=== PATIENT | female | born 1985 | race African-American/Black ===

== ENCOUNTER 2019-08-20 17:29 | Inpatient (IN) | payer MEDICAID ==
[~2019-08-20] VITALS: Ht 147.3 cm; Wt 103.9 kg
[2019-08-20 17:30] VITALS: BP_SYST 146
[2019-08-20] MEDS ORDERED: NACL 0.9% 1,000 ML IV ONE (17:50)
[2019-08-20 18:31] LABS: BASOPHILS % (AUTO) 0.2 % (0.0-2.0); EOSINOPHILS % (AUTO) 0.2 % (0.0-4.0); HEMATOCRIT 38.7 % (36-48); HEMOGLOBIN 12.6 g/dL (12.0-16.0); LYMPHOCYTES # (AUTO) 0.9 K/uL (1.0-5.5); LYMPHOCYTES % (AUTO) 10.1 % (20.5-51.5); MEAN CORPUSCULAR HEMOGLOBIN 29 pg (27-31); MEAN CORPUSCULAR HGB CONC 33 % (32-36); MEAN CORPUSCULAR VOLUME 88 fL (79.0-98.0); MONOCYTES # (AUTO) 0.5 K/uL (0.0-1.0); NEUTROPHILS # (AUTO) 7.9 K/uL (1.8-7.7); NEUTROPHILS % (AUTO) 84.5 % (40.0-70.0); RED BLOOD CELL COUNT(AUTO) 4.41 MIL/uL (4.2-6.2); RED CELL DISTRIBUTION WIDTH 17.1 % (9.0-15.0); WHITE BLOOD COUNT (AUTO) 9.3 K/uL (4.8-10.8)
[2019-08-20] MEDS ORDERED: LORazepam 2 MG/ML VIAL IVP ONE ×2 (18:45→23:30)
[2019-08-20 18:46] LABS: ANION GAP 11 (5-15); CALCIUM 8.6 mg/dL (8.4-11.0); CHLORIDE 100 mmol/L (98-107); GLUCOSE 264 mg/dL (70-99); POTASSIUM 4.2 mmol/L (3.5-5.1); SODIUM SERUM 132 mmol/L (136-145); UREA NITROGEN, BLOOD 9 mg/dL (8-21)
[2019-08-20 18:56] LABS: GFR AFRICAN AMERICAN 92 mL/min (>90)
[2019-08-20 18:59] LABS: ACETAMINOPHEN < 1 ug/mL (1-30); ALANINE AMINOTRANSFERASE 30 U/L (12-78); ALBUMIN 3.1 g/dL (3.4-4.8); ASPARTATE AMINOTRANSFERASE 43 U/L (10-37); TOTAL BILIRUBIN 0.7 mg/dL (0.0-1.0)
[2019-08-20 19:00] LABS: ALCOHOL, BLOOD < 3 mg/dL (<10)
[2019-08-20] MEDS ORDERED: INSULIN REGULAR, HUMAN 10 UNITS/0.1 ML INJ IVP ONE (19:00)
[2019-08-20 19:11] LABS: PLATELET COUNT (AUTO) 90 K/uL (130-430)
[2019-08-20 19:20] LABS: ACETONE, SERUM NEGATIVE (NEGATIVE)
[2019-08-20] MEDS ORDERED: LORA-259 PO (19:36)
[2019-08-20] MEDS ORDERED: INSU100V SUBQ (19:37)
[2019-08-20] MEDS ORDERED: DIVA-74 PO (19:37)
[2019-08-20] MEDS ORDERED: METF-379 PO (19:37)
[2019-08-20] MEDS ORDERED: [UNRECOGNIZED DRUG - CODE] PO (19:37)
[2019-08-20] MEDS ORDERED: LISI10TA PO (19:37)
[2019-08-20] MEDS ORDERED: BIMA2.5D5 EACH EYE (19:37)
[2019-08-20] MEDS ORDERED: INSU100V9 SUBQ (19:37)
[2019-08-20] MEDS ORDERED: ASPI-1153 PO (19:37)
[2019-08-20] MEDS ORDERED: GABA-529 PO (19:37)
[2019-08-20] MEDS ORDERED: FLUT1BLS11 INH (19:37)
[2019-08-20] MEDS ORDERED: LIP10 PO (19:37)
[2019-08-20] MEDS ORDERED: MONT10TA22 PO (19:37)
[2019-08-20] MEDS ORDERED: MULT1CAP34 PO (19:37)
[2019-08-20] MEDS ORDERED: OMEP40CA PO (19:37)
[2019-08-20] MEDS ORDERED: TRAZ-219 PO (19:38)
[2019-08-20] MEDS ORDERED: HYDC1% TP (19:38)
[2019-08-20] MEDS ORDERED: ALBU90AE INH (19:38)
[2019-08-20] MEDS ORDERED: DEXT-81 PO (19:38)
[2019-08-20] MEDS ORDERED: SENN-104 PO (19:38)
[2019-08-20] MEDS ORDERED: SUNSCREEN TP (19:38)
[2019-08-20] MEDS ORDERED: LORA10CA PO (19:38)
[2019-08-20] MEDS ORDERED: CALC500T51 PO (19:38)
[2019-08-20] MEDS ORDERED: IBUP-1503 PO (19:38)
[2019-08-20] MEDS ORDERED: CYCL-10 PO (19:38)
[2019-08-20] MEDS ORDERED: [UNRECOGNIZED DRUG - CODE] PO (19:38)
[2019-08-20] MEDS ORDERED: ROBDM PO (19:38)
[2019-08-20] MEDS ORDERED: IPRATROPIUM/ALBUTEROL SULFATE 3 ML AMPUL.NEB (DUONEB) INH ONE (20:00)
[2019-08-20] MEDS ORDERED: AZITHROMYCIN 500 MG in NS 250 ML IV ONE (20:00)
[2019-08-20] MEDS ORDERED: AZITHROMYCIN 500 MG/VIAL (ZITHROMAX) IV ONE ×2 (20:21→20:27)
[2019-08-20] MEDS ORDERED: cefTRIAXone 2 GM VIAL ONE (20:25)
[2019-08-20 20:37] LABS: FREE T4 (FREE THYROXINE) 0.7 ng/dl (0.8-1.5); THYROID STIMULATING HORMONE 0.68 uIu/mL (0.36-3.74)
[2019-08-20 20:44] LABS: BARBITURATE, URINE NEGATIVE (NEG <=200); BENZODIAZEPINE, URINE POSITIVE (NEG <=150); CANNABINOID, URINE NEGATIVE (NEG <=50); COCAINE, URINE NEGATIVE (NEG <=150); METHAMPHETAMINES SCREEN,URINE NEGATIVE (NEG <=500); OPIATE, URINE NEGATIVE (NEG <=100); PHENCYCLIDINE SCREEN,URINE NEGATIVE (NEG <=25); UR TRICYCLIC ANTIDEPRESSANTS POSITIVE (NEG <=300); URINE AMPHETAMINE NEGATIVE (NEG <=500); URINE METHADONE NEGATIVE (NEG <=200); URINE OXYCODONE SCREEN NEGATIVE (NEG <=100); URINE PROPOXYPHENE SCREEN NEGATIVE (NEG <=300)
[2019-08-20 23:13] LABS: BILIRUBIN,URINE 1+ (NEGATIVE); BLOOD, URINE NEGATIVE (NEGATIVE); CLARITY/URINE CLEAR (CLEAR); COLOR,URINE YELLOW (YELLOW); GLUCOSE,URINE 1+ (NEGATIVE); KETONES,URINE NEGATIVE (NEGATIVE); LEUKOCYTE ESTERASE ,URINE NEGATIVE (NEGATIVE); NITRITE, URINE NEGATIVE (NEGATIVE); PH,URINE 5.5 (5.0-8.0); PROTEIN URINE NEGATIVE (NEGATIVE); UROBILINOGEN,URINE 0.2 (0.2-1.0)
[2019-08-21] VITALS (7 sets, daily range): BP systolic 115–158
[2019-08-21 00:19] LABS: CKMB RELATIVE INDEX 0.8 (0.0-2.9); CREATINE KINASE MB 9.6 ng/mL (0-3.6)
[2019-08-21] MEDS ORDERED: HALOPERIDOL LACTATE 5 MG/ML VIAL IM ONE (02:00)
[2019-08-21] MEDS ORDERED: HALOPERIDOL LACTATE 5 MG/ML VIAL ONE (02:07)
[2019-08-21] MEDS ORDERED: LORazepam 2 MG/ML VIAL ONE (04:08)
[2019-08-21] MEDS: LORazepam 2 MG/ML VIAL IVP PRN ×4 (09:34→21:13)
[2019-08-21] MEDS ORDERED: SUNSCREEN TP SCH (11:30)
[2019-08-21] MEDS ORDERED: GLUCOSE PO SCH (11:30)
[2019-08-21] MEDS ORDERED: ALBUTEROL SULFATE 0.083% 2.5 MG/3 ML VIAL.NEB INH PRN (11:30)
[2019-08-21] MEDS ORDERED: INSULIN LISPRO SLIDING SCALE 100 UNITS/ML VIAL (humaLOG) SQ SCH (11:30)
[2019-08-21] MEDS ORDERED: ONDANSETRON HCL 4 MG/2 ML VIAL IVP PRN (11:45)
[2019-08-21] MEDS ORDERED: HYDROcodone/ACETAMIN 10-325 MG TAB PO PRN (11:45)
[2019-08-21] MEDS ORDERED: HYDROcodone/ACETAMIN 5-325 MG TAB (NORCO/ VICODIN) PO PRN (11:45)
[2019-08-21] MEDS ORDERED: ACETAMINOPHEN 325 MG TABLET PO PRN (11:45)
[2019-08-21] MEDS ORDERED: MORPHINE 2 MG/ML INJ. SYRINGE IVP PRN (11:45)
[2019-08-21] MEDS ORDERED: LISINOPRIL 10 MG TABLET (PRINIVIL) PO ONE (12:00)
[2019-08-21] MEDS ORDERED: cefTRIAXone 1 GM IVPB PREMIX 50 ML IV SCH (12:00)
[2019-08-21] MEDS: D5/0.45 NS 1,000 ML IV SCH ×2 (12:37→21:40)
[2019-08-21] MEDS: AZITHROMYCIN 500 MG in NS 250 ML IV SCH (12:37)
[2019-08-21] MEDS ORDERED: GLUCOSE 15 GM GEL (in 37.5 GM TUBE) PO PRN (12:45)
[2019-08-21] MEDS ORDERED: ACETAMINOPHEN 650 MG SUPP.RECT RC PRN (14:00)
[2019-08-21] MEDS ORDERED: ACETAMINOPHEN 650 MG SUPP.RECT RC ONE (14:10)
[2019-08-21] MEDS: LORazepam 1 MG TABLET PO SCH ×2 (15:00→21:00)
[2019-08-21] MEDS: GABAPENTIN 100 MG CAPSULE PO SCH ×2 (15:00→21:00)
[2019-08-21] MEDS: guaiFENesin/DEXTROMETHORPHAN 10 ML UDC PO SCH ×3 (15:14→19:30)
[2019-08-21] MEDS: IBUPROFEN 400 MG TABLET PO SCH ×3 (15:14→23:30)
[2019-08-21] MEDS: ACETAMINOPHEN 500 MG TABLET PO SCH ×3 (15:14→23:30)
[2019-08-21] MEDS ORDERED: LORazepam 2 MG/ML VIAL IVP PRN (15:15)
[2019-08-21] MEDS ORDERED: DILTIAZEM HCL 25 MG/5 ML VIAL IVP ONE (15:30)
[2019-08-21] MEDS: ACYCLOVIR IV 500 MG in D5W 100 ML IV SCH ×2 (15:50→21:23)
[2019-08-21] MEDS ORDERED: DEXTROSE 50% JECT 50 ML DISP.SYRIN IVP PRN (17:45)
[2019-08-21] MEDS: traZODone HCL 50 MG TABLET (DESYREL) PO SCH (17:51)
[2019-08-21] MEDS ORDERED: DEXTROSE 50% JECT 50 ML DISP.SYRIN ONE (17:52)
[2019-08-21] MEDS: ATORVASTATIN 10 MG TABLET PO SCH (17:53)
[2019-08-21] MEDS: CYCLOBENZAPRINE HCL 10 MG TABLET (FLEXERIL) PO SCH (21:00)
[2019-08-21] MEDS: DIVALPROEX SODIUM 500 MG TABLET( DEPAKOTE) PO SCH (21:00)
[2019-08-21] MEDS: THORAZINE (chlorproMAZINE) 25 MG TAB PO SCH (21:00)
[2019-08-21] MEDS: SENNOSIDES/DOCUSATE SODIUM 1 TAB TABLET(SENOKOT-S) PO SCH (21:00)
[2019-08-21] MEDS: cefTRIAXone 2 GM in D5W 50 ML IV SCH (21:25)
[2019-08-22] VITALS (9 sets, daily range): BP systolic 108–153
[2019-08-22] MEDS ORDERED: DILTIAZEM HCL 25 MG/5 ML VIAL IVP SCH
[2019-08-22] MEDS: LORazepam 2 MG/ML VIAL IVP PRN ×3 (00:10→09:26)
[2019-08-22] MEDS: guaiFENesin/DEXTROMETHORPHAN 10 ML UDC PO SCH ×7 (00:27→22:48)
[2019-08-22] MEDS: DILTIAZEM HCL 125 MG in D5W 100 ML IV SCH ×2 (03:54→20:47)
[2019-08-22] MEDS ORDERED: DILTIAZEM HCL 25 MG/5 ML VIAL IVP ONE (04:00)
[2019-08-22] MEDS: ACETAMINOPHEN 500 MG TABLET PO SCH ×4 (04:23→22:49)
[2019-08-22] MEDS: IBUPROFEN 400 MG TABLET PO SCH ×4 (04:23→22:48)
[2019-08-22] MEDS: ACYCLOVIR IV 500 MG in D5W 100 ML IV SCH ×3 (04:39→22:35)
[2019-08-22 07:14] LABS: BASOPHILS % (AUTO) 0.3 % (0.0-2.0); EOSINOPHILS # (AUTO) 0.1 K/uL (0.0-0.4); EOSINOPHILS % (AUTO) 0.8 % (0.0-4.0); HEMATOCRIT 35.5 % (36-48); HEMOGLOBIN 11.8 g/dL (12.0-16.0); LYMPHOCYTES # (AUTO) 1.2 K/uL (1.0-5.5); LYMPHOCYTES % (AUTO) 12.9 % (20.5-51.5); MEAN CORPUSCULAR HEMOGLOBIN 29 pg (27-31); MEAN CORPUSCULAR HGB CONC 33 % (32-36); MEAN CORPUSCULAR VOLUME 88 fL (79.0-98.0); MONOCYTES # (AUTO) 0.8 K/uL (0.0-1.0); MONOCYTES % (AUTO) 8.4 % (1.7-9.3); NEUTROPHILS # (AUTO) 7.3 K/uL (1.8-7.7); NEUTROPHILS % (AUTO) 77.6 % (40.0-70.0); PLATELET COUNT (AUTO) 84 K/uL (130-430); RED BLOOD CELL COUNT(AUTO) 4.05 MIL/uL (4.2-6.2); RED CELL DISTRIBUTION WIDTH 16.7 % (9.0-15.0); WHITE BLOOD COUNT (AUTO) 9.4 K/uL (4.8-10.8)
[2019-08-22 07:38] LABS: CALCIUM 8.4 mg/dL (8.4-11.0); CREATININE 1.04 mg/dL (0.55-1.30); POTASSIUM 3.3 mmol/L (3.5-5.1)
[2019-08-22] MEDS: MONTELUKAST 10 MG TABLET PO SCH (09:00)
[2019-08-22] MEDS: MULTIVITAMINS TAB 1 TABLET PO SCH (09:00)
[2019-08-22] MEDS: ASPIRIN 81 MG TABLET(ECOTRIN) PO SCH (09:00)
[2019-08-22] MEDS: THORAZINE (chlorproMAZINE) 25 MG TAB PO SCH ×2 (09:00→20:22)
[2019-08-22] MEDS: metFORMIN HCL 500 MG TABLET PO SCH (09:00)
[2019-08-22] MEDS: LORATADINE 10 MG TABLET PO SCH (09:00)
[2019-08-22] MEDS: PANTOPRAZOLE SODIUM 40 MG TAB PO SCH (09:00)
[2019-08-22] MEDS: DIVALPROEX SODIUM 500 MG TABLET( DEPAKOTE) PO SCH ×2 (09:00→20:21)
[2019-08-22] MEDS: LORazepam 1 MG TABLET PO SCH ×3 (09:00→20:21)
[2019-08-22] MEDS ORDERED: INSULIN GLARGINE 100 UNITS/ML 10 ML VIAL SQ SCH (09:00)
[2019-08-22] MEDS: LISINOPRIL 10 MG TABLET (PRINIVIL) PO SCH (09:00)
[2019-08-22] MEDS: SENNOSIDES/DOCUSATE SODIUM 1 TAB TABLET(SENOKOT-S) PO SCH ×2 (09:00→20:22)
[2019-08-22] MEDS: CALCIUM 500 MG/TAB PO SCH (09:00)
[2019-08-22] MEDS: GABAPENTIN 100 MG CAPSULE PO SCH ×3 (09:00→20:22)
[2019-08-22] MEDS ORDERED: POTASSIUM CHLORIDE 40 MEQ, LIDOCAINE JECT 2% PF 100 MG 50 MG in NS 250 ML IV ONE (11:30)
[2019-08-22] MEDS: cefTRIAXone 2 GM in D5W 50 ML IV SCH ×2 (11:48→20:47)
[2019-08-22] MEDS: D5/0.45 NS 1,000 ML IV SCH ×2 (11:50→17:33)
[2019-08-22] MEDS: MORPHINE 4 MG/ML INJ. SYRINGE IVP PRN (12:40)
[2019-08-22] MEDS: AZITHROMYCIN 500 MG in NS 250 ML IV SCH (13:51)
[2019-08-22] MEDS: HALOPERIDOL LACTATE 5 MG/ML VIAL IVP PRN (15:12)
[2019-08-22] MEDS: traZODone HCL 50 MG TABLET (DESYREL) PO SCH (17:33)
[2019-08-22] MEDS: ATORVASTATIN 10 MG TABLET PO SCH (17:33)
[2019-08-22] MEDS: CYCLOBENZAPRINE HCL 10 MG TABLET (FLEXERIL) PO SCH (20:21)
[2019-08-23 02:02] VITALS: BP_SYST 135
[2019-08-23] MEDS: LORazepam 2 MG/ML VIAL IVP PRN ×3 (02:07→16:56)
[2019-08-23] MEDS: guaiFENesin/DEXTROMETHORPHAN 10 ML UDC PO SCH ×6 (03:30→23:30)
[2019-08-23 04:37] VITALS: BP_SYST 141
[2019-08-23] MEDS: IBUPROFEN 400 MG TABLET PO SCH ×4 (04:38→23:30)
[2019-08-23] MEDS: ACETAMINOPHEN 500 MG TABLET PO SCH ×4 (04:38→23:30)
[2019-08-23] MEDS: D5/0.45 NS 1,000 ML IV SCH ×3 (06:18→23:41)
[2019-08-23] MEDS: ACYCLOVIR IV 500 MG in D5W 100 ML IV SCH ×3 (06:18→21:26)
[2019-08-23 07:45] LABS: BASOPHILS % (AUTO) 0.5 % (0.0-2.0); EOSINOPHILS # (AUTO) 0.2 K/uL (0.0-0.4); EOSINOPHILS % (AUTO) 2.4 % (0.0-4.0); HEMATOCRIT 35.4 % (36-48); HEMOGLOBIN 11.8 g/dL (12.0-16.0); LYMPHOCYTES # (AUTO) 0.9 K/uL (1.0-5.5); LYMPHOCYTES % (AUTO) 9.8 % (20.5-51.5); MEAN CORPUSCULAR HEMOGLOBIN 29 pg (27-31); MEAN CORPUSCULAR HGB CONC 33 % (32-36); MEAN CORPUSCULAR VOLUME 88 fL (79.0-98.0); MONOCYTES # (AUTO) 0.7 K/uL (0.0-1.0); MONOCYTES % (AUTO) 7.4 % (1.7-9.3); NEUTROPHILS # (AUTO) 7.1 K/uL (1.8-7.7); NEUTROPHILS % (AUTO) 79.9 % (40.0-70.0); PLATELET COUNT (AUTO) 84 K/uL (130-430); RED BLOOD CELL COUNT(AUTO) 4.03 MIL/uL (4.2-6.2); RED CELL DISTRIBUTION WIDTH 16.5 % (9.0-15.0); WHITE BLOOD COUNT (AUTO) 8.9 K/uL (4.8-10.8)
[2019-08-23 07:56] VITALS: BP_SYST 158
[2019-08-23 07:58] LABS: INR 1.2 (0.8-1.2); PROTHROMBIN TIME 11.9 SECS (9.5-12.5)
[2019-08-23 08:13] LABS: ALBUMIN 2.5 g/dL (3.4-4.8); C-REACTIVE PROTEIN QUANT 5.4 mg/dL (0-0.5); CALCIUM 8.3 mg/dL (8.4-11.0); CREATININE 0.79 mg/dL (0.55-1.30); POTASSIUM 3.3 mmol/L (3.5-5.1); TOTAL BILIRUBIN 0.5 mg/dL (0.0-1.0)
[2019-08-23] MEDS: ASPIRIN 81 MG TABLET(ECOTRIN) PO SCH (08:20)
[2019-08-23] MEDS: DIVALPROEX SODIUM 500 MG TABLET( DEPAKOTE) PO SCH ×2 (08:20→21:00)
[2019-08-23] MEDS: LORazepam 1 MG TABLET PO SCH ×3 (08:20→21:00)
[2019-08-23] MEDS: LORATADINE 10 MG TABLET PO SCH (08:20)
[2019-08-23] MEDS: MULTIVITAMINS TAB 1 TABLET PO SCH (08:21)
[2019-08-23] MEDS: LISINOPRIL 10 MG TABLET (PRINIVIL) PO SCH (08:21)
[2019-08-23] MEDS: GABAPENTIN 100 MG CAPSULE PO SCH ×3 (08:21→21:00)
[2019-08-23] MEDS: CALCIUM 500 MG/TAB PO SCH (08:21)
[2019-08-23] MEDS: metFORMIN HCL 500 MG TABLET PO SCH (08:21)
[2019-08-23] MEDS: PANTOPRAZOLE SODIUM 40 MG TAB PO SCH (08:22)
[2019-08-23] MEDS: THORAZINE (chlorproMAZINE) 25 MG TAB PO SCH ×2 (08:22→21:00)
[2019-08-23] MEDS: SENNOSIDES/DOCUSATE SODIUM 1 TAB TABLET(SENOKOT-S) PO SCH ×2 (08:22→21:00)
[2019-08-23] MEDS: MONTELUKAST 10 MG TABLET PO SCH (08:22)
[2019-08-23] MEDS: HALOPERIDOL LACTATE 5 MG/ML VIAL IVP SCH ×3 (08:34→21:12)
[2019-08-23] MEDS: cefTRIAXone 2 GM in D5W 50 ML IV SCH ×2 (08:34→21:12)
[2019-08-23 09:27] LABS: ERYTHROCYTE SEDIMENTATION RATE 17 MM/HR (0-20)
[2019-08-23] MEDS ORDERED: POTASSIUM CHLORIDE 40 MEQ, LIDOCAINE JECT 2% PF 100 MG 50 MG in NS 250 ML IV ONE (09:45)
[2019-08-23] MEDS ORDERED: CALCIUM GLUCONATE 1 GM in NS 100 ML IV ONE (09:45)
[2019-08-23] MEDS: traZODone HCL 50 MG TABLET (DESYREL) PO SCH (10:30)
[2019-08-23] MEDS: ATORVASTATIN 10 MG TABLET PO SCH (10:31)
[2019-08-23] MEDS: AZITHROMYCIN 500 MG in NS 250 ML IV SCH (11:30)
[2019-08-23] MEDS: INSULIN REGULAR, HUMAN 100 UNITS/ML, 10 ML VIAL (humuLIN R) SUBCUT PRN ×2 (11:47→23:41)
[2019-08-23 12:00] VITALS: BP_SYST 129
[2019-08-23 16:23] VITALS: BP_SYST 134
[2019-08-23] MEDS: CYCLOBENZAPRINE HCL 10 MG TABLET (FLEXERIL) PO SCH (21:00)
[2019-08-23 21:09] VITALS: BP_SYST 142
[2019-08-23] MEDS: DILTIAZEM HCL 125 MG in D5W 100 ML IV SCH (22:16)
[2019-08-24 01:22] VITALS: BP_SYST 136
[2019-08-24] MEDS: LORazepam 2 MG/ML VIAL IVP PRN (01:47)
[2019-08-24] MEDS: guaiFENesin/DEXTROMETHORPHAN 10 ML UDC PO SCH ×5 (03:30→20:32)
[2019-08-24] MEDS: HALOPERIDOL LACTATE 5 MG/ML VIAL IVP PRN (04:26)
[2019-08-24] MEDS: IBUPROFEN 400 MG TABLET PO SCH ×3 (04:59→17:33)
[2019-08-24] MEDS: ACETAMINOPHEN 500 MG TABLET PO SCH ×3 (05:00→17:33)
[2019-08-24] MEDS: ACYCLOVIR IV 500 MG in D5W 100 ML IV SCH ×3 (05:30→21:09)
[2019-08-24] MEDS: INSULIN REGULAR, HUMAN 100 UNITS/ML, 10 ML VIAL (humuLIN R) SUBCUT PRN ×3 (05:30→17:26)
[2019-08-24 06:15] LABS: BASOPHILS % (AUTO) 0.5 % (0.0-2.0); EOSINOPHILS # (AUTO) 0.2 K/uL (0.0-0.4); EOSINOPHILS % (AUTO) 1.8 % (0.0-4.0); HEMATOCRIT 37.1 % (36-48); HEMOGLOBIN 12.3 g/dL (12.0-16.0); LYMPHOCYTES # (AUTO) 1.6 K/uL (1.0-5.5); LYMPHOCYTES % (AUTO) 17.9 % (20.5-51.5); MEAN CORPUSCULAR HEMOGLOBIN 29 pg (27-31); MEAN CORPUSCULAR HGB CONC 33 % (32-36); MEAN CORPUSCULAR VOLUME 88 fL (79.0-98.0); MONOCYTES # (AUTO) 0.9 K/uL (0.0-1.0); MONOCYTES % (AUTO) 9.4 % (1.7-9.3); NEUTROPHILS # (AUTO) 6.4 K/uL (1.8-7.7); NEUTROPHILS % (AUTO) 70.4 % (40.0-70.0); RED BLOOD CELL COUNT(AUTO) 4.23 MIL/uL (4.2-6.2); WHITE BLOOD COUNT (AUTO) 9.1 K/uL (4.8-10.8)
[2019-08-24 06:19] LABS: C-REACTIVE PROTEIN QUANT 9.1 mg/dL (0-0.5); CALCIUM 8.8 mg/dL (8.4-11.0); CREATININE 0.86 mg/dL (0.55-1.30); POTASSIUM 3.9 mmol/L (3.5-5.1)
[2019-08-24 07:15] LABS: PLATELET COUNT (AUTO) 96 K/uL (130-430)
[2019-08-24 07:46] VITALS: BP_SYST 145
[2019-08-24 07:51] LABS: ERYTHROCYTE SEDIMENTATION RATE 27 MM/HR (0-20)
[2019-08-24] MEDS: HALOPERIDOL LACTATE 5 MG/ML VIAL IVP SCH ×3 (08:07→20:32)
[2019-08-24] MEDS: metFORMIN HCL 500 MG TABLET PO SCH (09:00)
[2019-08-24] MEDS: SENNOSIDES/DOCUSATE SODIUM 1 TAB TABLET(SENOKOT-S) PO SCH ×2 (09:00→20:33)
[2019-08-24] MEDS: LISINOPRIL 10 MG TABLET (PRINIVIL) PO SCH (09:00)
[2019-08-24] MEDS: PANTOPRAZOLE SODIUM 40 MG TAB PO SCH (09:00)
[2019-08-24] MEDS: LORATADINE 10 MG TABLET PO SCH (09:00)
[2019-08-24] MEDS: CALCIUM 500 MG/TAB PO SCH (09:00)
[2019-08-24] MEDS: GABAPENTIN 100 MG CAPSULE PO SCH ×3 (09:00→20:33)
[2019-08-24] MEDS: LORazepam 1 MG TABLET PO SCH ×3 (09:00→20:33)
[2019-08-24] MEDS: MONTELUKAST 10 MG TABLET PO SCH (09:00)
[2019-08-24] MEDS: THORAZINE (chlorproMAZINE) 25 MG TAB PO SCH ×2 (09:00→20:41)
[2019-08-24] MEDS: ASPIRIN 81 MG TABLET(ECOTRIN) PO SCH (09:00)
[2019-08-24] MEDS: MULTIVITAMINS TAB 1 TABLET PO SCH (09:00)
[2019-08-24] MEDS: D5/0.45 NS 1,000 ML IV SCH ×2 (10:00→20:28)
[2019-08-24] MEDS: DIVALPROEX SODIUM 500 MG TABLET( DEPAKOTE) PO SCH ×2 (10:29→20:33)
[2019-08-24] MEDS: cefTRIAXone 2 GM in D5W 50 ML IV SCH ×2 (10:40→20:34)
[2019-08-24 12:00] VITALS: BP_SYST 147
[2019-08-24 12:03] VITALS: BP_SYST 145
[2019-08-24] MEDS: AZITHROMYCIN 500 MG in NS 250 ML IV SCH (12:27)
[2019-08-24] MEDS: MORPHINE 4 MG/ML INJ. SYRINGE IVP PRN (13:21)
[2019-08-24 16:04] VITALS: BP_SYST 127
[2019-08-24] MEDS: traZODone HCL 50 MG TABLET (DESYREL) PO SCH (17:33)
[2019-08-24] MEDS: ATORVASTATIN 10 MG TABLET PO SCH (17:33)
[2019-08-24 20:31] VITALS: BP_SYST 138
[2019-08-24] MEDS: CYCLOBENZAPRINE HCL 10 MG TABLET (FLEXERIL) PO SCH (20:33)
[2019-08-25] MEDS: ACETAMINOPHEN 500 MG TABLET PO SCH ×4 (00:25→17:27)
[2019-08-25] MEDS: IBUPROFEN 400 MG TABLET PO SCH ×4 (00:25→17:25)
[2019-08-25] MEDS: guaiFENesin/DEXTROMETHORPHAN 10 ML UDC PO SCH ×6 (00:25→19:30)
[2019-08-25] MEDS: INSULIN REGULAR, HUMAN 100 UNITS/ML, 10 ML VIAL (humuLIN R) SUBCUT PRN ×4 (00:31→17:31)
[2019-08-25 01:26] VITALS: BP_SYST 141
[2019-08-25 03:39] VITALS: BP_SYST 132
[2019-08-25] MEDS: DILTIAZEM HCL 125 MG in D5W 100 ML IV SCH (03:41)
[2019-08-25] MEDS: ACYCLOVIR IV 500 MG in D5W 100 ML IV SCH ×3 (05:18→23:09)
[2019-08-25] MEDS: D5/0.45 NS 1,000 ML IV SCH ×2 (05:19→15:30)
[2019-08-25 06:50] LABS: BASOPHILS # (AUTO) 0.1 K/uL (0.0-0.2); BASOPHILS % (AUTO) 0.8 % (0.0-2.0); EOSINOPHILS # (AUTO) 0.4 K/uL (0.0-0.4); EOSINOPHILS % (AUTO) 5.6 % (0.0-4.0); HEMOGLOBIN 11.6 g/dL (12.0-16.0); LYMPHOCYTES # (AUTO) 1.2 K/uL (1.0-5.5); MEAN CORPUSCULAR HEMOGLOBIN 29 pg (27-31); MEAN CORPUSCULAR HGB CONC 33 % (32-36); MEAN CORPUSCULAR VOLUME 88 fL (79.0-98.0); MONOCYTES # (AUTO) 0.6 K/uL (0.0-1.0); MONOCYTES % (AUTO) 8.7 % (1.7-9.3); NEUTROPHILS # (AUTO) 4.7 K/uL (1.8-7.7); NEUTROPHILS % (AUTO) 67.9 % (40.0-70.0); PLATELET COUNT (AUTO) 87 K/uL (130-430); RED BLOOD CELL COUNT(AUTO) 3.99 MIL/uL (4.2-6.2); RED CELL DISTRIBUTION WIDTH 16.6 % (9.0-15.0); WHITE BLOOD COUNT (AUTO) 6.9 K/uL (4.8-10.8)
[2019-08-25 07:08] LABS: C-REACTIVE PROTEIN QUANT 7.2 mg/dL (0-0.5); CALCIUM 8.2 mg/dL (8.4-11.0); CREATININE 0.79 mg/dL (0.55-1.30); POTASSIUM 3.3 mmol/L (3.5-5.1)
[2019-08-25 08:00] VITALS: BP_SYST 140
[2019-08-25 09:07] LABS: ERYTHROCYTE SEDIMENTATION RATE 23 MM/HR (0-20)
[2019-08-25] MEDS: cefTRIAXone 2 GM in D5W 50 ML IV SCH (10:05)
[2019-08-25] MEDS: GABAPENTIN 100 MG CAPSULE PO SCH ×3 (10:05→22:25)
[2019-08-25] MEDS: metFORMIN HCL 500 MG TABLET PO SCH (10:06)
[2019-08-25] MEDS: LORazepam 1 MG TABLET PO SCH ×3 (10:06→22:26)
[2019-08-25] MEDS: DIVALPROEX SODIUM 500 MG TABLET( DEPAKOTE) PO SCH ×2 (10:07→22:25)
[2019-08-25] MEDS: LORATADINE 10 MG TABLET PO SCH (10:07)
[2019-08-25] MEDS: CALCIUM 500 MG/TAB PO SCH (10:07)
[2019-08-25] MEDS: ASPIRIN 81 MG TABLET(ECOTRIN) PO SCH (10:08)
[2019-08-25] MEDS: MULTIVITAMINS TAB 1 TABLET PO SCH (10:08)
[2019-08-25] MEDS: MONTELUKAST 10 MG TABLET PO SCH (10:08)
[2019-08-25] MEDS: THORAZINE (chlorproMAZINE) 25 MG TAB PO SCH ×2 (10:09→22:41)
[2019-08-25] MEDS: SENNOSIDES/DOCUSATE SODIUM 1 TAB TABLET(SENOKOT-S) PO SCH ×2 (10:09→21:00)
[2019-08-25] MEDS: LISINOPRIL 10 MG TABLET (PRINIVIL) PO SCH (10:10)
[2019-08-25] MEDS: HALOPERIDOL LACTATE 5 MG/ML VIAL IVP SCH ×2 (10:11→15:00)
[2019-08-25] MEDS: PANTOPRAZOLE SODIUM 40 MG TAB PO SCH (10:11)
[2019-08-25] MEDS: AZITHROMYCIN 500 MG in NS 250 ML IV SCH (12:13)
[2019-08-25 12:50] VITALS: BP_SYST 150
[2019-08-25 16:12] VITALS: BP_SYST 140
[2019-08-25] MEDS: ATORVASTATIN 10 MG TABLET PO SCH (17:25)
[2019-08-25] MEDS: traZODone HCL 50 MG TABLET (DESYREL) PO SCH (17:27)
[2019-08-25] MEDS ORDERED: HALOPERIDOL LACTATE 5 MG/ML VIAL IVP ONE (18:00)
[2019-08-25] MEDS ORDERED: PIOG30TA70 PO (18:30)
[2019-08-25] MEDS ORDERED: metFORMIN HCL 500 MG TABLET PO ONE (18:30)
[2019-08-25] MEDS ORDERED: ACYC800T PO (18:30)
[2019-08-25] MEDS ORDERED: METF-379 PO (18:30)
[2019-08-25] MEDS ORDERED: POTASSIUM CHLORIDE 20 MEQ TAB.PRT.SR PO ONE (18:30)
[2019-08-25] MEDS ORDERED: PIOGLITAZONE HCL 30 MG TABLET PO ONE (18:30)
[2019-08-25] MEDS ORDERED: PIOGLITAZONE HCL 15 MG TABLET PO ONE (18:45)
[2019-08-25] MEDS ORDERED: traZODone HCL 50 MG TABLET (DESYREL) PO PRN (21:00)
[2019-08-25] MEDS: CYCLOBENZAPRINE HCL 10 MG TABLET (FLEXERIL) PO SCH (22:26)
[2019-08-26] MEDS: ACETAMINOPHEN 500 MG TABLET PO SCH ×4 (00:50→18:43)
[2019-08-26] MEDS: guaiFENesin/DEXTROMETHORPHAN 10 ML UDC PO SCH ×6 (00:50→21:07)
[2019-08-26] MEDS: IBUPROFEN 400 MG TABLET PO SCH ×4 (00:52→18:43)
[2019-08-26] MEDS: INSULIN REGULAR, HUMAN 100 UNITS/ML, 10 ML VIAL (humuLIN R) SUBCUT PRN ×4 (00:59→18:36)
[2019-08-26 02:11] VITALS: BP_SYST 119
[2019-08-26] MEDS: D5/0.45 NS 1,000 ML IV SCH ×3 (04:46→22:00)
[2019-08-26] MEDS: ACYCLOVIR IV 500 MG in D5W 100 ML IV SCH ×3 (05:26→23:00)
[2019-08-26 07:23] LABS: BASOPHILS % (AUTO) 0.9 % (0.0-2.0); EOSINOPHILS # (AUTO) 0.3 K/uL (0.0-0.4); EOSINOPHILS % (AUTO) 6.6 % (0.0-4.0); HEMATOCRIT 33.3 % (36-48); HEMOGLOBIN 10.7 g/dL (12.0-16.0); LYMPHOCYTES % (AUTO) 22.7 % (20.5-51.5); MEAN CORPUSCULAR HEMOGLOBIN 29 pg (27-31); MEAN CORPUSCULAR HGB CONC 32 % (32-36); MEAN CORPUSCULAR VOLUME 90 fL (79.0-98.0); MONOCYTES # (AUTO) 0.3 K/uL (0.0-1.0); MONOCYTES % (AUTO) 7.3 % (1.7-9.3); NEUTROPHILS # (AUTO) 2.9 K/uL (1.8-7.7); NEUTROPHILS % (AUTO) 62.5 % (40.0-70.0); PLATELET COUNT (AUTO) 82 K/uL (130-430); RED BLOOD CELL COUNT(AUTO) 3.68 MIL/uL (4.2-6.2); RED CELL DISTRIBUTION WIDTH 17.7 % (9.0-15.0); WHITE BLOOD COUNT (AUTO) 4.6 K/uL (4.8-10.8)
[2019-08-26 07:30] LABS: C-REACTIVE PROTEIN QUANT 4.1 mg/dL (0-0.5); CREATININE 0.76 mg/dL (0.55-1.30)
[2019-08-26 08:00] VITALS: BP_SYST 128
[2019-08-26 09:07] LABS: ERYTHROCYTE SEDIMENTATION RATE 18 MM/HR (0-20)
[2019-08-26] MEDS: DIVALPROEX SODIUM 500 MG TABLET( DEPAKOTE) PO SCH ×2 (09:20→20:58)
[2019-08-26] MEDS: MULTIVITAMINS TAB 1 TABLET PO SCH (09:21)
[2019-08-26] MEDS: PIOGLITAZONE HCL 15 MG TABLET PO SCH (09:21)
[2019-08-26] MEDS: ASPIRIN 81 MG TABLET(ECOTRIN) PO SCH (09:21)
[2019-08-26] MEDS: LISINOPRIL 10 MG TABLET (PRINIVIL) PO SCH (09:24)
[2019-08-26] MEDS: MONTELUKAST 10 MG TABLET PO SCH (09:24)
[2019-08-26] MEDS: metFORMIN HCL 500 MG TABLET PO SCH ×2 (09:24→18:33)
[2019-08-26] MEDS: GABAPENTIN 100 MG CAPSULE PO SCH ×3 (09:24→20:59)
[2019-08-26] MEDS: PANTOPRAZOLE SODIUM 40 MG TAB PO SCH (09:24)
[2019-08-26] MEDS: CALCIUM 500 MG/TAB PO SCH (09:24)
[2019-08-26] MEDS: LORATADINE 10 MG TABLET PO SCH (09:25)
[2019-08-26] MEDS: LORazepam 1 MG TABLET PO SCH ×3 (09:25→20:58)
[2019-08-26] MEDS: HALOPERIDOL LACTATE 5 MG/ML VIAL IVP SCH ×2 (09:25→20:59)
[2019-08-26] MEDS: SENNOSIDES/DOCUSATE SODIUM 1 TAB TABLET(SENOKOT-S) PO SCH ×2 (10:04→20:58)
[2019-08-26] MEDS: THORAZINE (chlorproMAZINE) 25 MG TAB PO SCH ×2 (10:05→21:00)
[2019-08-26 12:16] VITALS: BP_SYST 130
[2019-08-26 16:10] VITALS: BP_SYST 127
[2019-08-26] MEDS: ATORVASTATIN 10 MG TABLET PO SCH (18:33)
[2019-08-26 20:00] VITALS: BP_SYST 129
[2019-08-26] MEDS: CYCLOBENZAPRINE HCL 10 MG TABLET (FLEXERIL) PO SCH (20:59)
[2019-08-27] MEDS: guaiFENesin/DEXTROMETHORPHAN 10 ML UDC PO SCH ×6 (00:19→19:30)
[2019-08-27] MEDS: IBUPROFEN 400 MG TABLET PO SCH ×4 (00:19→16:11)
[2019-08-27] MEDS: ACETAMINOPHEN 500 MG TABLET PO SCH ×4 (00:19→16:11)
[2019-08-27] MEDS: INSULIN REGULAR, HUMAN 100 UNITS/ML, 10 ML VIAL (humuLIN R) SUBCUT PRN ×4 (00:46→16:57)
[2019-08-27 01:48] VITALS: BP_SYST 123
[2019-08-27 06:23] LABS: BASOPHILS % (AUTO) 0.9 % (0.0-2.0); EOSINOPHILS # (AUTO) 0.4 K/uL (0.0-0.4); HEMATOCRIT 35.5 % (36-48); HEMOGLOBIN 11.6 g/dL (12.0-16.0); LYMPHOCYTES # (AUTO) 1.4 K/uL (1.0-5.5); LYMPHOCYTES % (AUTO) 29.9 % (20.5-51.5); MEAN CORPUSCULAR HEMOGLOBIN 29 pg (27-31); MEAN CORPUSCULAR HGB CONC 33 % (32-36); MEAN CORPUSCULAR VOLUME 90 fL (79.0-98.0); MONOCYTES # (AUTO) 0.3 K/uL (0.0-1.0); MONOCYTES % (AUTO) 6.7 % (1.7-9.3); NEUTROPHILS # (AUTO) 2.6 K/uL (1.8-7.7); NEUTROPHILS % (AUTO) 54.5 % (40.0-70.0); PLATELET COUNT (AUTO) 102 K/uL (130-430); RED BLOOD CELL COUNT(AUTO) 3.96 MIL/uL (4.2-6.2); WHITE BLOOD COUNT (AUTO) 4.8 K/uL (4.8-10.8)
[2019-08-27 06:26] LABS: CALCIUM 8.7 mg/dL (8.4-11.0); CREATININE 0.72 mg/dL (0.55-1.30); POTASSIUM 4.3 mmol/L (3.5-5.1)
[2019-08-27] MEDS: ACYCLOVIR IV 500 MG in D5W 100 ML IV SCH ×2 (06:55→13:29)
[2019-08-27] MEDS: D5/0.45 NS 1,000 ML IV SCH ×2 (06:57→17:33)
[2019-08-27 08:00] VITALS: BP_SYST 141
[2019-08-27] MEDS ORDERED: THORAZINE (chlorproMAZINE) 100 MG TAB PO SCH (08:37)
[2019-08-27] MEDS: ASPIRIN 81 MG TABLET(ECOTRIN) PO SCH (08:45)
[2019-08-27] MEDS: metFORMIN HCL 500 MG TABLET PO SCH ×2 (08:45→16:12)
[2019-08-27] MEDS: THORAZINE (chlorproMAZINE) 25 MG TAB PO SCH ×2 (08:46→19:57)
[2019-08-27] MEDS: LORazepam 1 MG TABLET PO SCH ×3 (08:46→19:55)
[2019-08-27] MEDS: PANTOPRAZOLE SODIUM 40 MG TAB PO SCH (08:47)
[2019-08-27] MEDS: MONTELUKAST 10 MG TABLET PO SCH (08:47)
[2019-08-27] MEDS: SENNOSIDES/DOCUSATE SODIUM 1 TAB TABLET(SENOKOT-S) PO SCH ×2 (08:47→19:55)
[2019-08-27] MEDS: HALOPERIDOL LACTATE 5 MG/ML VIAL IVP SCH ×2 (08:47→19:55)
[2019-08-27] MEDS: DIVALPROEX SODIUM 500 MG TABLET( DEPAKOTE) PO SCH ×2 (08:47→19:56)
[2019-08-27] MEDS: PIOGLITAZONE HCL 15 MG TABLET PO SCH (08:47)
[2019-08-27] MEDS: LORATADINE 10 MG TABLET PO SCH (08:47)
[2019-08-27] MEDS: CALCIUM 500 MG/TAB PO SCH (08:58)
[2019-08-27] MEDS: GABAPENTIN 100 MG CAPSULE PO SCH ×3 (08:58→19:55)
[2019-08-27] MEDS: MULTIVITAMINS TAB 1 TABLET PO SCH (08:58)
[2019-08-27] MEDS: LISINOPRIL 10 MG TABLET (PRINIVIL) PO SCH (08:58)
[2019-08-27 12:52] VITALS: BP_SYST 139
[2019-08-27] MEDS: ATORVASTATIN 10 MG TABLET PO SCH (16:11)
[2019-08-27 16:47] VITALS: BP_SYST 135
[2019-08-27] MEDS: CYCLOBENZAPRINE HCL 10 MG TABLET (FLEXERIL) PO SCH (19:55)
[2019-08-27 21:03] VITALS: BP_SYST 148
== END 2019-08-27 22:08 | disposition home or self-care (01) | DRG 50 ==
LOC: SED 17:29 → STU 22:26
PROVIDERS: ADMIT Preventive Medicine Preventive Medicine/Occupational Environmental Medicine; ATTEND Preventive Medicine Preventive Medicine/Occupational Environmental Medicine
DX: G03.9 Meningitis, unspecified (principal); G92 Toxic encephalopathy; G91.9 Hydrocephalus, unspecified; D69.6 Thrombocytopenia, unspecified; E11.65 Type 2 diabetes mellitus with hyperglycemia; E44.1 Mild protein-calorie malnutrition; E83.52 Hypercalcemia; E87.1 Hypo-osmolality and hyponatremia; D64.9 Anemia, unspecified; E78.5 Hyperlipidemia, unspecified; E87.6 Hypokalemia; F17.210 Nicotine dependence, cigarettes, uncomplicated; F29 Unspecified psychosis not due to a substance or known physiological condition; F20.9 Schizophrenia, unspecified; F79 Unspecified intellectual disabilities; I10 Essential (primary) hypertension; J44.9 Chronic obstructive pulmonary disease, unspecified; Z79.899 Other long term (current) drug therapy; Z68.42 Body mass index [BMI] 45.0-49.9, adult; Z79.82 Long term (current) use of aspirin; Z79.84 Long term (current) use of oral hypoglycemic drugs
CPT/HCPCS: 36415; 36600; 70450-TC; 71045; 80048; 80053; 80307; 81003; 82009-TC; 82140-TC; 82550-TC; 82553-TC; 82803-TC; 82962; 83605; 83735-TC; 84439; 84443-TC; 85025; 85610-TC; 85651-TC; 85730-TC; 86140; 87040-TC; 87086; 92610-GN; 93005; 93306; 94640; 96361; 96365; 96368; 96372; 96375; 97116-GP; 97530-GP; 99285; G0378; G0480; G0481; G0482; J0133; J0456; J0610; J0696; J1630; J1815; J2060; J2270; J3480; J3490; J7030; J7050; J7060; J7613; Q0161